=== PATIENT | female | born 1990 | race Caucasian/White ===

== ENCOUNTER 2021-11-23 15:20 | Emergency (ER) | payer OTHER ==
[2021-11-23 15:58] LABS: HEMOGLOBIN 12.6 gm/dl (12.3-15.3); RED BLOOD COUNT 4.54 M/UL (4.00-5.10); WHITE BLOOD COUNT 8.1 K/UL (4.5-11.0)
[2021-11-23 16:21] LABS: BUN/CREATININE RATIO 10 (0-10)
[2021-11-23] MEDS ORDERED: SUDAFED 30 MG T30 MG PO (17:35)
[2021-11-23] MEDS ORDERED: MEDROL4 MG PO (17:35)
== END 2021-11-23 17:52 | disposition home or self-care (01) ==
LOC: ER1 15:20
PROVIDERS: Emergency Medicine
DX: R07.89 Other chest pain (principal); J06.9 Acute upper respiratory infection, unspecified; R30.0 Dysuria; F17.290 Nicotine dependence, other tobacco product, uncomplicated; Z88.0 Allergy status to penicillin; Z88.2 Allergy status to sulfonamides
CPT/HCPCS: 71045; 80053; 81001; 82550; 82553; 83605; 83690; 84484; 84703; 85025; 93005; 99285